=== PATIENT | male | born 1965 | race Caucasian/White ===

== ENCOUNTER 2017-09-19 11:34 | Emergency (ER) | payer BC ==
[2017-09-19] MEDS ORDERED: Moxifloxacin 0.5% Ophth Soln 3 ML Bottle EYERT ONE (12:39)
[2017-09-19] MEDS ORDERED: Cephalexin 500 MG Cap PO ONE (12:41)
--- NOTE | 2017-09-19 13:04 | EDM.PDOC ---
ED HPI GENERAL MEDICAL PROBLEM - General Chief Complaint: ENT Problem Stated Complaint: RT EYE Time Seen by Provider: 09/19/17 12:19 Source of Information: Reports: Patient, RN, RN Notes Reviewed History Limitations: Reports: No Limitations - History of Present Illness INITIAL COMMENTS - FREE TEXT/NARRATIVE: Patient states he had lens replacement 1 yaer ago with cataract. He has never been able to see well. He seen Dr. Vinod Deras. Vision is 20/ 40. Yesterday became very weepy/watery. They became red, achy and pain now 10/ 10. No vision at all. He can see light but very blurry worse than yesterday. He used lubricating ointment and patched last night. Duration: Getting Worse Location: Reports: Other (eyes) Quality: Reports: Ache, Burning Severity: Moderate Improves with: Reports: None Worsens with: Reports: None Associated Symptoms: Reports: No Other Symptoms Right Eye Pain Score (Numeric/FACES): 10 - Related Data Allergies Allergy/AdvReac Type Severity Reaction Status Date / Time No Known Allergies Allergy Verified 09/19/17 11:56 Home Meds: Home Meds Brimonidine Tartrate [Brimonidine Tartrate] 1 drop EYERT DAILY 02/25/17 [History ] Latanoprost 1 drop EYERT DAILY 02/25/17 [History] Timolol Maleate [Timoptic-XE 0.5% Ophth Gel] 1 drop EYERT DAILY 02/25/17 [ History] Past Medical History Cardiovascular History: Reports: High Cholesterol Respiratory History: Reports: Sleep Apnea Other Respiratory History: uses CPAP Gastrointestinal History: Reports: None Genitourinary History: Reports: None Musculoskeletal History: Reports: None Neurological History: Reports: None Psychiatric History: Reports: None Endocrine/Metabolic History: Reports: None Hematologic History: Reports: None Immunologic History: Reports: None Oncologic (Cancer) History: Reports: None Dermatologic History: Reports: None - Infectious Disease History Infectious Disease History: Reports: Chicken Pox - Past Surgical History Head Surgeries/Procedures: Reports: None HEENT Surgical History: Reports: Cataract Surgery, Other (See Below) Other HEENT Surgeries/Procedures: lens replacement in the right eye, GI Surgical History: Reports: Appendectomy, Cholecystectomy, Hernia Repair/Other Other Musculoskeletal Surgeries/Procedures:: knee surgury Social & Family History - Family History Family Medical History: Noncontributory - Tobacco Use Smoking Status *Q: Former Smoker Years of Tobacco use: 10 Packs/Tins Daily: 0.5 Used Tobacco, but Quit: Yes Month Tobacco Last Used: august Second Hand Smoke Exposure: No - Caffeine Use Caffeine Use: Reports: Soda - Recreational Drug Use Recreational Drug Use: No ED ROS GENERAL - Review of Systems Review Of Systems: ROS reveals no pertinent complaints other than HPI. ED EXAM GENERAL W FULL EYE - Physical Exam Exam: See Below Exam Limited By: No Limitations General Appearance: Alert, WD/WN, No Apparent Distress Eye Exam: Bilateral Eye: Other (Right eye very read. Right pupil sluggish. EOMIA okay. Left pupil brisk 4. ) Ears: Normal External Exam, Normal Canal, Hearing Grossly Normal, Normal TMs Nose: Normal Inspection, Normal Mucosa, No Blood Throat/Mouth: Normal Inspection, Normal Lips, Normal Teeth, Normal Gums, Normal Oropharynx, Normal Voice, No Airway Compromise Head: Atraumatic, Normocephalic Neck: Normal Inspection, Supple, Non-Tender, Full Range of Motion Respiratory/Chest: No Respiratory Distress, Lungs Clear, Normal Breath Sounds, No Accessory Muscle Use, Chest Non-Tender Cardiovascular: Normal Peripheral Pulses, Regular Rate, Rhythm, No Edema, No Gallop, No JVD, No Murmur, No Rub GI/Abdominal: Normal Bowel Sounds, Soft, Non-Tender, No Organomegaly, No Distention, No Abnormal Bruit, No Mass (Male) Exam: Deferred Rectal (Males) Exam: Deferred Back Exam: Normal Inspection, Full Range of Motion, NT Extremities: Normal Inspection, Normal Range of Motion, Non-Tender, Normal Capillary Refill, No Pedal Edema Neurological: Alert, Oriented, CN II-XII Intact, Normal Cognition, Normal Gait, Normal Reflexes, No Motor/Sensory Deficits Psychiatric: Normal Affect, Normal Mood Skin Exam: Warm, Dry, Intact, Normal Color, No Rash Lymphatic: No Adenopathy Course - Vital Signs Last Recorded V/S: Last Vital Signs Temp 97.4 F 09/19/17 11:50 Pulse 77 09/19/17 11:50 Resp 16 09/19/17 11:50 BP 127/76 09/19/17 11:50 Pulse Ox 98 09/19/17 11:50 - Orders/Labs/Meds Meds: Medications Discontinued Medications Generic Name Dose Route Start Last Admin Trade Name Lencho PRN Reason Stop Dose Admin Cephalexin 500 mg 09/19/17 12:41 09/19/17 12:45 Keflex PO 09/19/17 12:42 500 mg ONETIME ONE Administration Moxifloxacin HCl 1 ml 09/19/17 12:39 09/19/17 12:47 Vigamox 0.5% Ophth Soln EYERT 09/19/17 12:40 1 ml ONETIME ONE Administration - Re-Assessments/Exams Free Text/Narrative Re-Assessment/Exam: 09/22/17 17:27 Pt and state they have called the [facility] yesterday. They state they called both [place] and [place] office. Were told to see Adry Carrion (?) on Thursday. Today they left a message and call was not returned. Discussed the patient case with Dr. Keen at [facility] in . Patient will meet this doctor at the [facility] in [place] this evening. 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
== END 2017-09-19 13:11 ==
LOC: DL.ED 11:34
DX: H44.001 Unspecified purulent endophthalmitis, right eye (principal); E78.00 Pure hypercholesterolemia, unspecified; Z87.891 Personal history of nicotine dependence
CPT/HCPCS: 99284; A9270